=== PATIENT | male | born 2000 | race African-American/Black ===

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

== ENCOUNTER 2022-05-17 02:45 | Emergency (ER) | payer SELFPAY ==
[~2022-05-17] VITALS: Ht 172.7 cm; Wt 77.2 kg
[2022-05-17] MEDS ORDERED: BENADRY2 EX (03:21)
[2022-05-17] MEDS ORDERED: CEPHALEXIN500 MG PO (03:21)
[2022-05-17 03:24] VITALS: BP 123/80
== END 2022-05-17 03:35 | disposition home or self-care (01) | DRG 607 ==
LOC: ED 02:45
DX: S30.821A Blister (nonthermal) of abdominal wall, initial encounter (principal); L08.9 Local infection of the skin and subcutaneous tissue, unspecified; X58.XXXA Exposure to other specified factors, initial encounter; F17.200 Nicotine dependence, unspecified, uncomplicated